=== PATIENT | male | born 1965 | race Caucasian/White ===

== ENCOUNTER 2018-01-18 13:03 | Outpatient (CLI) | payer BC | END 2018-01-18 13:04 | disposition home or self-care (01) | LOC: BICRAD 13:03 | PROVIDERS: ATTEND Internal Medicine | DX: M25.532 Pain in left wrist (principal); M79.642 Pain in left hand; S62.232A Other displaced fracture of base of first metacarpal bone, left hand, initial encounter for closed fracture | CPT/HCPCS: 36415; 80053; 80061; 84443; 85025; G0103 ==

== ENCOUNTER 2018-12-07 09:06 | Outpatient (CLI) | payer BC ==
--- NOTE | 2018-12-07 10:10 | ULT ---
ULTRASOUND ABDOMEN: HISTORY: Abdominal pain FINDINGS: The liver demonstrates increased echogenicity consistent with fatty infiltration. There is a 1.4 cm c yst in the left lobe a 2.6 cm cyst in the right lobe of the liver. No abnormal biliary ductal dilatation is seen. The common duct measures 6 m in diameter. No gallstones, gallbladder wall thicken ing or pericholecystic fluid is seen. The pancreas is not well visualized due to overlying bowel gas. The visualized portions of the aorta and IVC are normal. The kidneys and spleen are unremarkable. No free fluid is seen. IMPRESSION: Hepatic cysts and fatty liver
== END 2018-12-07 09:07 | disposition home or self-care (01) ==
LOC: BICULT 09:06
PROVIDERS: ATTEND Internal Medicine
DX: R94.4 Abnormal results of kidney function studies (principal); K76.89 Other specified diseases of liver; K76.0 Fatty (change of) liver, not elsewhere classified
CPT/HCPCS: 76700